=== PATIENT | male | born 1980 | race Caucasian/White ===

== ENCOUNTER 2016-12-23 12:50 | Emergency (ER) | payer OTHER ==
[2016-12-23 13:00] VITALS: TEMP 98.1
[2016-12-23] MEDS ORDERED: TDAP Vaccine 0.5 mL Syr IM ONE (13:00)
--- NOTE | 2016-12-23 15:13 | CT ---
PROCEDURE: CT HEAD WITHOUT CONTRAST. HISTORY: ETOH/fall COMPARISON: None available. TECHNIQUE: Axial computed tomography images were obtained through the head/brain without intravenous contrast. Radiation dose: Total exam DLP = 941 mGy-cm. This CT exam was performed using one or more of the following dose reduction techniques: Automated exposure control, adjustment of the mA and/or kV according to patient size, and/or use of iterative reconstruction technique. FINDINGS: HEMORRHAGE: No intracranial hemorrhage. BRAIN: No mass effect or edema. No atrophy or chronic microvascular ischemic changes. VENTRICLES: Unremarkable. No hydrocephalus. CALVARIUM: Unremarkable. PARANASAL SINUSES: Unremarkable as visualized. No significant inflammatory changes. MASTOID AIR CELLS: Unremarkable as visualized. No inflammatory changes. OTHER FINDINGS: None. IMPRESSION: No acute findings
[2016-12-23] MEDS ORDERED: Sodium Chloride 0.9% 1,000 ML IV STA (15:30)
--- NOTE | 2016-12-23 15:31 | CT ---
PROCEDURE: CT MAXILLOFACIAL BONES WITHOUT CONTRAST HISTORY: fall/facial injury COMPARISON: None TECHNIQUE: Contiguous axial CT images of the maxillofacial bones were obtained. Coronal and sagittal reformats were generated. Radiation dose: Total exam DLP = 452 mGy-cm. This CT exam was performed using one or more of the following dose reduction techniques: Automated exposure control, adjustment of the mA and/or kV according to patient size, and/or use of iterative reconstruction technique. FINDINGS: NASAL BONES: Unremarkable. ORBITS: Unremarkable. PARANASAL SINUSES/ MASTOIDS: Clear. MAXILLA: Unremarkable. MANDIBLE/ TEMPOROMANDIBULAR JOINTS: Unremarkable. SKULL BASE: Unremarkable. TEMPORAL BONES: Middle ears and mastoid grossly unremarkable. OTHER FINDINGS: None. IMPRESSION: No acute finding
--- NOTE | 2016-12-23 15:35 | ED PDOC ---
Arrival/HPI - General Historian: Patient - History of Present Illness Time/Duration: Prior to Arrival - General Chief Complaint: Alcohol Ingestion Time Seen by Provider: 12/23/16 13:00 - History of Present Illness Narrative History of Present Illness (Text): 12/23/16 15:34 36yr old male presents today with facial injury s/p fall. pt states he was drinking about 10 beers today and fell. pt denies any complaints. states last tetanus shot was "a long time ago". pt denies cp or sob. no abdominal pain. no vomiting. denies headache or dizziness (Blaire Fuentes) Past Medical History - Provider Review Nursing Documentation Reviewed: Yes - Travel History Have you recently traveled outside [place] w/in the past 3 mons?: No - Infectious Disease Hx of Infectious Diseases: None - Tetanus Immunization Tetanus Immunization: Unknown - Psychiatric Hx Substance Use: No Family/Social History - Physician Review Nursing Documentation Reviewed: Yes Family/Social History: Unknown Family HX Smoking Status: Never Smoked Hx Alcohol Use: Yes Frequency of alcohol use: Daily Hx Substance Use: No Allergies/Home Meds Allergies/Adverse Reactions: Allergies No Known Allergies Allergy (Verified 12/23/16 13:00) Review of Systems - Review of Systems Systems not reviewed;Unavailable: Intoxicated Eyes: absent: Vision Changes Respiratory: absent: SOB, Cough Cardiovascular: absent: Chest Pain, Palpitations Gastrointestinal: absent: Abdominal Pain, Nausea, Vomiting Musculoskeletal: absent: Arthralgias Skin: Other (abrasions) Neurological: absent: Headache, Dizziness Psychiatric: absent: Depression, Suicidal Ideation Physical Exam Vital Signs Reviewed: Yes Temperature: Afebrile Blood Pressure: Normal Pulse: Tachycardic Respiratory Rate: Normal Appearance: Positive for: Well-Appearing, Non-Toxic, Comfortable Pain Distress: None Mental Status: Positive for: Alert and Oriented X 3 Finger Stick Blood Glucose: 234 - Systems Exam Head: Present: Contusion (+ swelling and ecchymosis noted to forehead), Abrasion (abrasions noted to forehead, nose, chin and lip. no active bleeding). No: Tenderness, Ecchymosis Pupils: Present: PERRL Extroacular Muscles: Present: EOMI Conjunctiva: Present: Normal. No: Injected Ears: Present: Normal, NORMAL TM. No: Erythema Mouth: Present: Moist Mucous Membranes Pharnyx: Present: Normal Nose (External): Present: Abrasion Nose (Internal): Present: No Active Bleeding, Clear Mucous. No: Septal Hematoma , Epistaxis Neck: Present: Normal Range of Motion, Trachea Midline. No: MIDLINE TENDERNESS , Paraspinal Tenderness Respiratory/Chest: Present: Clear to Auscultation, Good Air Exchange. No: Respiratory Distress, Accessory Muscle Use Cardiovascular: Present: Normal S1, S2, Tachycardic. No: Murmurs Abdomen: No: Tenderness, Distention, Rebound, Guarding Back: Present: Normal Inspection. No: Midline Tenderness, Paraspinal Tenderness Upper Extremity: Present: Normal Inspection, Normal ROM Lower Extremity: Present: Normal Inspection, Normal ROM Neurological: Present: GCS=15, Speech Normal Skin: Present: Warm, Dry, Normal Color Psychiatric: Present: Alert, Intoxicated. No: Suicidal Ideation Vital Signs Temp Pulse Resp BP Pulse Ox 12/23/16 17:45 100 H 18 130/88 98 12/23/16 16:13 115 H 18 114/66 97 12/23/16 13:21 98.1 F 118 H 19 133/82 96 12/23/16 12:55 98.1 F 115 H 18 133/82 96 Medical Decision Making ED Course and Treatment: I was available for consultation during PA evaluation. The chart was reviewed by me, and I agree with disposition. The documented history was done by the physician men's golf coach. The documented physical exam was done by the physician men's golf coach. The documented procedures were done by the physician men's golf coach. (Basilio Galvan) 12/23/16 15:38 36yr old male presents today with facial/head injury. admits to drinking [address] headFINDINGS: HEMORRHAGE: No intracranial hemorrhage. BRAIN: No mass effect or edema. No atrophy or chronic microvascular ischemic changes. VENTRICLES: Unremarkable. No hydrocephalus. CALVARIUM: Unremarkable. PARANASAL SINUSES: Unremarkable as visualized. No significant inflammatory changes. MASTOID AIR CELLS: Unremarkable as visualized. No inflammatory changes. OTHER FINDINGS: None. IMPRESSION: No acute findings ct maxillofacial bones: FINDINGS: NASAL BONES: Unremarkable. ORBITS: Unremarkable. PARANASAL SINUSES/ MASTOIDS: Clear. MAXILLA: Unremarkable. MANDIBLE/ TEMPOROMANDIBULAR JOINTS: Unremarkable. SKULL BASE: Unremarkable. TEMPORAL BONES: Middle ears and mastoid grossly unremarkable. OTHER FINDINGS: None. IMPRESSION: No acute finding tetanus updated. cxr; FINDINGS: Examination limited by habitus. LUNGS: No focal consolidation. Please note that chest x-ray has limited sensitivity for the detection of pulmonary masses. PLEURA: No significant pleural effusion identified. No definite pneumothorax . CARDIOVASCULAR: The cardiomediastinal silhouette appears within normal limits of size. OSSEOUS STRUCTURES: Irregularities involving the right lateral 9th and 10th ribs may reflect age indeterminate fracture deformities. Correlate clinically. VISUALIZED UPPER ABDOMEN: Unremarkable. OTHER FINDINGS: None. IMPRESSION: No focal consolidation, significant pleural effusion, or definite pneumothorax identified. Irregularities involving the right lateral 9th and 10th ribs may reflect age indeterminate fracture deformities. Correlate clinically. pt remains non toxic well appearing; no distress. still slight tachycardic; pt without rib tenderness, edema or erythema; no step offs or crepitus. EKG: sinus tachycardia at 115 b/m no st elevation, normal axis; normal intervals. cbc; wnl cmp; glucose; 181 12/23/16 18:19 pts vitals improving; HR; 106 pt given 1L NS iv bolus. 12/23/16 19:57 pt feeling much better; denies any complaints; vitals still improving. HR:100. pt drinking fluids in er. 12/23/16 20:51 pt reassessment; vitals stable. alert oriented x3. clinically stable. pt states he has hx of htn diagnosed 6 months ago; he has bp meds at home. Patient ambulating with a steady gait. Patient will be discharged into the care of his family member. Patient verbalizes understanding of discharge instructions and need for immediate followup. impression; alcohol intoxication, head injury, facial abrasion keep wounds clean and dry apply bacitracin twice daily follow up with primary care physician within the next 2 days. return immediately if symptoms worsen,persist or if any new concerning symptoms develop. Return immediately if signs of infection develop: High fevers, increasing pain, increasing redness, increasing swelling (Blaire Fuentes) - Lab Interpretations Lab Results: 12/23/16 16:00 12/23/16 16:00 Lab Results 12/23/16 16:00: WBC 5.2, RBC 4.95, Hgb 15.8, Hct 44.1, MCV 89.1, MCH 31.9, MCHC 35.8, RDW 12.8, Plt Count 249, MPV 10.3, Gran % 48.7 L, Lymph % (Auto) 42.0 H, Pershing % (Auto) 7.9 H, Eos % (Auto) 0.8 L, Baso % (Auto) 0.6, Gran # 2.53, Lymph # 2.2, Pershing # 0.4, Eos # 0.0, Baso # 0.03 12/23/16 16:00: Sodium 146, Potassium 3.9, Chloride 106, Carbon Dioxide 23, Anion Gap 21 H, BUN 13, Creatinine 0.5 L, Est GFR ( Amer) > 60, Est GFR ( Non-Af Amer) > 60, Random Glucose 182 H, Calcium 8.4, Total Bilirubin 0.4, AST 40, ALT 51, Alkaline Phosphatase 80, Total Protein 7.9, Albumin 4.6, Globulin 3.3, Albumin/Globulin Ratio 1.4 - RAD Interpretation Radiology Orders: 12/23/16 13:00 HEAD W/O CONTRAST [CT] Stat MAXILLOFACIAL W/O CONTRAST [CT] Stat 12/23/16 16:21 CHEST PORTABLE [RAD] Stat - Medication Orders Current Medication Orders: Discontinued Medications Sodium Chloride (Sodium Chloride 0.9%) 1,000 mls @ 999 mls/hr IV .Q1H1M STA Stop: 12/23/16 16:30 Last Admin: 12/23/16 16:11 Dose: 999 mls/hr eMAR Start Stop Document 12/23/16 16:11 [facility] [place] 12/23/16 16:11 [facility] [id number] Intravenous Solution Start Date 12/23/16 Start Time 16:11 End Date 12/23/16 End time 17:15 Total Infusion Time 64 Tetanus/Reduced Diphtheria/Acell Pertussis (Boostrix Vaccine Inj) 0.5 ml IM .ONCE ONE Stop: 12/23/16 13:01 Last Admin: 12/23/16 16:11 Dose: 0.5 ml MAR Immunization Data Document 12/23/16 16:11 [facility] [place] 12/23/16 16:12 [facility] [place] [id number][place] Immunization Data Vaccine Lot Number [id number] Vaccine Expiration Date 09/25/18 Disposition/Present on Arrival - Present on Arrival Any Indicators Present on Arrival: No History of DVT/PE: No History of Uncontrolled Diabetes: No Urinary Catheter: No History of Decub. Ulcer: No History Surgical Site Infection Following: None - Disposition Have Diagnosis and Disposition been Completed?: Yes Disposition Time: 20:54 Patient Plan: Discharge - Disposition Diagnosis: Head injury, Facial abrasion, Alcohol intoxication Disposition: HOME/ ROUTINE Patient Problems: Current Active Problems Problem Status Onset Alcohol intoxication Acute Facial abrasion Acute Head injury Acute Condition: GOOD Discharge Instructions (ExitCare): Head Injury (ED), Abrasion (ED), Alcohol Intoxication (ED) Additional Instructions: keep wounds clean and dry apply bacitracin twice daily follow up with primary care physician within the next 2 days. return immediately if symptoms worsen,persist or if any new concerning symptoms develop. Return immediately if signs of infection develop: High fevers, increasing pain, increasing redness, increasing swelling Prescriptions: Bacitracin OINT 1 applic TP BID #1 tube Referrals: Kacie Flores MD [Staff Provider] - Follow up with primary [facility] at [facility] [place] [Outside] - Follow up with primary Forms: [facility] ([facility]), WORK NOTE
[2016-12-23 16:20] LABS: BASO # 0.03 K/mm3 (0.0-2.0); BASO % 0.6 % (0.0-3.0); EOS % 0.8 % (1.5-5.0); GRAN # 2.53 (1.4-6.5); GRAN % 48.7 % (50.0-68.0); HEMATOCRIT 44.1 % (42.0-52.0); LYMPH # 2.2 (1.2-3.4); MEAN CELL VOLUME 89.1 fl (80.0-105.0); MEAN CORPUSCULAR HEMOGLOBIN 31.9 pg (25.0-35.0); MEAN CORPUSCULAR HGB CONC 35.8 g/dl (31.0-37.0); MEAN PLATELET VOLUME 10.3 fl (7.0-11.0); MONO # 0.4 (0.1-0.6); MONO % 7.9 % (1.0-6.0); RED CELL DISTRIBUTION WIDTH 12.8 % (11.5-14.5); WHITE BLOOD COUNT 5.2 10^3/ul (4.5-11.0)
[2016-12-23 16:29] LABS: ALB/GLOB RATIO 1.4 (1.1-1.8); ALKALINE PHOSPHATASE 80 U/L (38-126); ALT/SGPT 51 U/L (7-56); AST/SGOT 40 U/L (17-59); BILIRUBIN,TOTAL 0.4 mg/dL (0.2-1.3); BLOOD UREA NITROGEN 13 mg/dL (7-21); CALCIUM 8.4 mg/dL (8.4-10.5); CARBON DIOXIDE 23 mmol/L (21-33); CHLORIDE 106 mmol/L (98-107); GFR AFRICAN-AMERICAN > 60; GLUCOSE,RANDOM 182 mg/dL (70-110); POTASSIUM 3.9 mmol/L (3.6-5.0); SODIUM 146 mmol/L (132-148); TOTAL PROTEIN 7.9 g/dL (5.8-8.3)
--- NOTE | 2016-12-23 17:46 | RAD ---
HISTORY: ETOH COMPARISON: None available. TECHNIQUE: Chest, one view. FINDINGS: Examination limited by habitus. LUNGS: No focal consolidation. Please note that chest x-ray has limited sensitivity for the detection of pulmonary masses. PLEURA: No significant pleural effusion identified. No definite pneumothorax . CARDIOVASCULAR: The cardiomediastinal silhouette appears within normal limits of size. OSSEOUS STRUCTURES: Irregularities involving the right lateral 9th and 10th ribs may reflect age indeterminate fracture deformities. Correlate clinically. VISUALIZED UPPER ABDOMEN: Unremarkable. OTHER FINDINGS: None. IMPRESSION: No focal consolidation, significant pleural effusion, or definite pneumothorax identified. Irregularities involving the right lateral 9th and 10th ribs may reflect age indeterminate fracture deformities. Correlate clinically.
--- NOTE | 2016-12-23 20:42 | CARD ---
APPROVED REPORT EKG Measurement Heart [id number] <Conclusion> Sinus tachycardia Rightward axis Incomplete right bundle branch block Borderline ECG
[2016-12-23 20:51] VITALS: BP 147/88; PULSE 97; O2SAT 100
[2016-12-23 20:59] VITALS: RESP 18
== END 2016-12-23 21:20 | disposition home or self-care (01) ==
LOC: ED 12:50
DX: S00.81XA Abrasion of other part of head, initial encounter (principal); W18.30XA Fall on same level, unspecified, initial encounter; Y93.89 Activity, other specified; Y92.89 Other specified places as the place of occurrence of the external cause; F10.129 Alcohol abuse with intoxication, unspecified; Z23 Encounter for immunization
CPT/HCPCS: 70450; 70486; 71010; 80053; 85025; 90471; 90715; 93005; 96360; 99284; J7040